=== PATIENT | female | born 1995 | race Caucasian/White ===

== ENCOUNTER 2016-07-13 03:11 | Emergency (ER) | payer BC ==
[2016-07-13] MEDS ORDERED: Phenergan 25 MG INJ IV ONE (03:26)
[2016-07-13] MEDS ORDERED: Sodium Chloride 0.9% 1000 ML 1,000 ML IV STA (03:26)
[2016-07-13] MEDS ORDERED: Sodium Chloride 0.9% 1000 ML 1,000 ML ONE (03:32)
[2016-07-13] MEDS ORDERED: Phenergan 25 MG INJ ONE (03:32)
--- NOTE | 2016-07-13 03:34 | ERPHSYRPT ---
- History of Present Illness Time Seen by Provider: 07/13/16 03:20 Source: patient Exam Limitations: no limitations Patient Subjective Stated Complaint: "i have been feeling sick since . i have not been hardly eating or drinking. i feel sick to my stomach when i lay down. i have felt light headed all day today. i have lost 20 lbs resently" Triage Nursing Assessment: aox3, breathign easy unlabored, skin pink warm dry, steady gait, moving all extremities Physician History: IN THE PAST 5 DAYS PT HAS HAD DECREASED APPETITE, NAUSEA, VOMITING X4 WITHOUT BLOOD, DIARRHEA X4 WITHOUT BLOOD, THIRST, DIZZINESS, LIGHTHEADEDNESS, WEIGHT LOSS OF 20# AND A FRONTAL HEADACHE. LAST BM WAS YESTERDAY AND DIARRHEAL. LMP IS NOW. Allergies/Adverse Reactions: albuterol Allergy (Mild, Verified 03/11/15 13:33) CHILDHOOD cefixime [From Suprax] Allergy (Mild, Verified 03/11/15 13:33) CHILDHOOD cefuroxime axetil [From Ceftin] Allergy (Mild, Verified 03/11/15 13:33) CHILDHOOD Hx Tetanus, Diphtheria Vaccination/Date Given: Yes Hx Influenza Vaccination/Date Given: Yes (2013) Hx Pneumococcal Vaccination/Date Given: No - Review of Systems Constitutional: Weight Loss, Other (THIRST), No Fever Respiratory: No Dyspnea Cardiac: No Chest Pain Abdominal/Gastrointestinal: Nausea, Vomiting, Diarrhea, Appetite Changes ( DECREASED), No Abdominal Pain Musculoskeletal: No Back Pain Skin: No Rash Neurological: Dizziness, Headache, Other (LIGHTHEADEDNESS) All Other Systems: Reviewed and Negative - Past Medical History Pertinent Past Medical History: Yes Psycho-Social History: Depression - Past Surgical History Past Surgical History: Yes Gastrointestinal: Other Other Surgical History: GASTRIC BYPASS, TONSILS - Social History Smoking Status: Never smoker Exposure to second hand smoke: No Drug Use: none Patient Lives Alone: No - Female History Hx Last Menstrual Period: 07/13/16 Hx Now: No - Nursing Vital Signs Nursing Vital Signs: Initial Vital Signs Temperature 97.7 F Temperature Source Oral Pulse Rate 64 Respiratory Rate 12 Blood Pressure [Right Arm] 125/74 Pain Intensity 0 - Physical Exam General Appearance: alert Eye Exam: PERRL/EOMI Ears, Nose, Throat Exam: TMs normal, pharynx normal, dry mucous membranes Neck Exam: normal inspection Respiratory Exam: lungs clear Cardiovascular Exam: normal heart sounds Gastrointestinal/Abdomen Exam: soft, normal bowel sounds Back Exam: normal range of motion Extremity Exam: normal inspection, No pedal edema Neurologic Exam: alert, cooperative Skin Exam: warm, dry SpO2 Interpretation: normal SpO2: 100 Oxygen Delivery: Room Air - Course Nursing assessment & vital signs reviewed: Yes Ordered Tests: Active Orders 24 hr Category Date Time Status IV Insertion STAT Care 07/13/16 03:26 Active AMYLASE Stat Lab 07/13/16 03:50 Completed CBC W DIFF Stat Lab 07/13/16 03:50 Completed CMP Stat Lab 07/13/16 03:50 Completed HCG QUALITATIVE,SERUM Stat Lab 07/13/16 03:50 Completed LIPASE Stat Lab 07/13/16 03:50 Completed MAG [MAGNESIUM] Stat Lab 07/13/16 03:50 Completed UA W/ MICROSCOPIC Stat Lab 07/13/16 03:50 Completed Urine Triage Profile Stat Lab 07/13/16 03:50 Completed Medication Summary Discontinued Medications Generic Name Dose Route Start Last Admin Trade Name Freq PRN Reason Stop Dose Admin Sodium Chloride 1,000 mls @ 999 mls/hr 07/13/16 03:26 07/13/16 03:33 Sodium Chloride 0.9% 1000 Ml IV 07/13/16 04:26 999 mls/hr .Q1H1M STA Administration Sodium Chloride Confirm 07/13/16 03:32 Sodium Chloride 0.9% 1000 Ml Administered 07/13/16 03:33 Dose 1,000 mls @ ud .ROUTE .STK-MED ONE Promethazine HCl 12.5 mg 07/13/16 03:26 07/13/16 03:33 Phenergan 25 Mg Inj IV 07/13/16 03:27 12.5 mg STAT ONE Administration Promethazine HCl Confirm 07/13/16 03:32 Phenergan 25 Mg Inj Administered 07/13/16 03:33 Dose 25 mg .ROUTE .STK-MED ONE Lab/Rad Data: Laboratory Result Diagrams 07/13/16 03:50 07/13/16 03:50 Laboratory Results 07/13/16 07/13/16 07/13/16 Range/Units 03:50 03:50 03:50 WBC (4.0-10.5) K/mm3 RBC (4.1-5.4) M/mm3 Hgb (12.0-16.0) gm/dl Hct (35-47) % MCV (78-100) fl MCH (26-32) pg MCHC (32-36) g/dl RDW (11.5-14.0) % Plt Count (150-450) K/mm3 MPV (6-9.5) fl Gran % (36.0-66.0) % Lymphocytes % (24.0-44.0) % Monocytes % (0.0-12.0) % Eosinophils % (0.00-5.0) % Basophils % (0.0-0.4) % Basophils # (0-0.4) Sodium (136-145) mEq/L Potassium (3.5-5.1) mEq/L Chloride (98-107) mEq/L Carbon Dioxide (21-32) mEq/L Anion Gap (5-15) MEQ/L BUN (9-20) mg/dL Creatinine (0.55-1.30) mg/dl Estimated GFR ML/MIN Glucose (70-110) MG/DL Calcium (8.5-10.1) mg/dL Magnesium 2.0 (1.8-2.4) mg/dL Total Bilirubin (0.2-1.0) mg/dL AST (15-37) U/L ALT (12-78) U/L Alkaline Phosphatase (46-116) U/L Serum Total Protein (6.4-8.2) gm/dL Albumin (3.4-5.0) g/dL Amylase (25-115) U/L Lipase (73-393) U/L Serum , Qual (Negative) Ur Collection Type CLEAN CATCH Urine Color KITTY (YELLOW) Urine Appearance SLIGHTLY CLOUDY (CLEAR) Urine pH 5.5 (5-6) Ur Specific [place] >=1.030 (1.005-1.025) Urine Protein 30 (Negative) Urine Glucose (UA) NEGATIVE (NEGATIVE) mg/dL Urine Ketones MODERATE-40 (NEGATIVE) Urine Nitrite NEGATIVE (NEGATIVE) Urine Bilirubin MODERATE (NEGATIVE) Urine Urobilinogen 1 (0-1) mg/dL Urine WBC (Auto) NEGATIVE (NEGATIVE) Urine RBC (Auto) NEGATIVE (0-5) Demarco/ul Urine Microscopic WBC 0-2 (0-5) /HPF Urine Bacteria FEW (NEGATIVE) /HPF Urine Mucus MANY (NEGATIVE) /HPF Urine Opiates Level NEG. (NEGATIVE) Ur Methadone NEG. (NEGATIVE) Urine Barbiturates NEG. (NEGATIVE) Ur Phencyclidine (PCP) NEG. (NEGATIVE) Urine Amphetamine NEG. (NEGATIVE) U Benzodiazepine Level NEG. (NEGATIVE) Urine Cocaine NEG. (NEGATIVE) Urine Marijuana (THC) NEG. (NEGATIVE) Specimen Received [id number] 07/13/16 07/13/16 07/13/16 Range/Units 03:50 03:50 03:50 WBC 7.6 (4.0-10.5) K/mm3 RBC 3.91 L (4.1-5.4) M/mm3 Hgb 11.0 L (12.0-16.0) gm/dl Hct 33.8 L (35-47) % MCV 86.4 (78-100) fl MCH 28.1 (26-32) pg MCHC 32.5 (32-36) g/dl RDW 13.9 (11.5-14.0) % Plt Count 305 (150-450) K/mm3 MPV 10.4 H (6-9.5) fl Gran % 59.8 (36.0-66.0) % Lymphocytes % 30.9 (24.0-44.0) % Monocytes % 8.1 (0.0-12.0) % Eosinophils % 0.9 (0.00-5.0) % Basophils % 0.3 (0.0-0.4) % Basophils # 0.02 (0-0.4) Sodium 138 (136-145) mEq/L Potassium 3.8 (3.5-5.1) mEq/L Chloride 103 (98-107) mEq/L Carbon Dioxide 24.8 (21-32) mEq/L Anion Gap 13.6 (5-15) MEQ/L BUN 11 (9-20) mg/dL Creatinine 0.80 (0.55-1.30) mg/dl Estimated GFR > 60 ML/MIN Glucose 85 (70-110) MG/DL Calcium 8.9 (8.5-10.1) mg/dL Magnesium (1.8-2.4) mg/dL Total Bilirubin 0.4 (0.2-1.0) mg/dL AST 26 (15-37) U/L ALT 36 (12-78) U/L Alkaline Phosphatase 63 (46-116) U/L Serum Total Protein 7.6 (6.4-8.2) gm/dL Albumin 4.0 (3.4-5.0) g/dL Amylase 42 (25-115) U/L Lipase 89 (73-393) U/L Serum , Qual NEGATIVE (Negative) Ur Collection Type Urine Color (YELLOW) Urine Appearance (CLEAR) Urine pH (5-6) Ur Specific [place] (1.005-1.025) Urine Protein (Negative) Urine Glucose (UA) (NEGATIVE) mg/dL Urine Ketones (NEGATIVE) Urine Nitrite (NEGATIVE) Urine Bilirubin (NEGATIVE) Urine Urobilinogen (0-1) mg/dL Urine WBC (Auto) (NEGATIVE) Urine RBC (Auto) (0-5) Demarco/ul Urine Microscopic WBC (0-5) /HPF Urine Bacteria (NEGATIVE) /HPF Urine Mucus (NEGATIVE) /HPF Urine Opiates Level (NEGATIVE) Ur Methadone (NEGATIVE) Urine Barbiturates (NEGATIVE) Ur Phencyclidine (PCP) (NEGATIVE) Urine Amphetamine (NEGATIVE) U Benzodiazepine Level (NEGATIVE) Urine Cocaine (NEGATIVE) Urine Marijuana (THC) (NEGATIVE) Specimen Received - Departure Time of Disposition: 04:58 Departure Disposition: Home Clinical Impression: VOMITING, DIARRHEA Condition: Fair Critical Care Time: No Instructions: Vomiting -- Adult, Diarrhea and Traveler's Diarrhea -- Adult Additional Instructions: FOLLOW UP WITH PRIVATE DOCTOR TOMORROW. Prescriptions: Promethazine HCl 25 mg [Phenergan 25 mg] 25 mg PO Q4H PRN PRN #14 tablet PRN Reason: Nausea/Vomiting
[2016-07-13 03:54] LABS: BASOPHIL % 0.3 % (0.0-0.4); Eosinophil % 0.9 % (0.00-5.0); Granulocytes % 59.8 % (36.0-66.0); Lymphocytes % 30.9 % (24.0-44.0); Mean Cell Volume 86.4 fl (78-100); Mean Corpuscular Hemoglobin 28.1 pg (26-32); Mean Platelet Volume 10.4 fl (6-9.5); Monocytes % 8.1 % (0.0-12.0); Platelet Count 305 K/mm3 (150-450); Red Blood Count 3.91 M/mm3 (4.1-5.4); Red Cell Distribution Width 13.9 % (11.5-14.0); White Blood Count 7.6 K/mm3 (4.0-10.5)
[2016-07-13 04:10] LABS: ALKALINE PHOSPHATASE 63 U/L (46-116); ANION GAP 13.6 MEQ/L (5-15); BILIRUBIN,TOTAL 0.4 mg/dL (0.2-1.0); BLOOD UREA NITROGEN 11 mg/dL (9-20); CHLORIDE 103 mEq/L (98-107); Carbon Dioxide 24.8 mEq/L (21-32); Glucose 85 MG/DL (70-110); LIPASE 89 U/L (73-393); Potassium 3.8 mEq/L (3.5-5.1); SGOT/AST 26 U/L (15-37); SGPT/ALT 36 U/L (12-78); SODIUM 138 mEq/L (136-145); Total Protein 7.6 gm/dL (6.4-8.2)
[2016-07-13 04:29] LABS: Collection Type CLEAN CATCH; Ph 5.5 (5-6)
[2016-07-13 04:30] LABS: Bacteria FEW /HPF (NEGATIVE); COMPLETE URINE MICROSCOPIC? YES; Mucus MANY /HPF (NEGATIVE); WBC 0-2 /HPF (0-5)
[2016-07-13 04:59] VITALS: O2SAT 100
[2016-07-13 05:11] VITALS: BP 144/65; PULSE 60
== END 2016-07-13 05:11 | disposition home or self-care (01) ==
LOC: ED 03:11
DX: R11.2 Nausea with vomiting, unspecified (principal); R19.7 Diarrhea, unspecified; Z98.84 Bariatric surgery status; R42 Dizziness and giddiness; R51 Headache; R10.9 Unspecified abdominal pain
CPT/HCPCS: 36000; 36415; 80053; 80307; 81000; 82150; 83690; 83735; 84703; 85025; 96360; 96374; 99283; 99284; J2550

== ENCOUNTER 2017-09-29 08:01 | Emergency (ER) | payer BC ==
[2017-09-29] MEDS ORDERED: TORAdol 30 mg Injection ONE (08:21)
--- NOTE | 2017-09-29 08:22 | ERPHSYRPT ---
- History of Present Illness Time Seen by Provider: 09/29/17 08:19 Source: patient Exam Limitations: no limitations Patient Subjective Stated Complaint: Lower back pain, denies injury. Denies hx of complaint Triage Nursing Assessment: Pt presents to the ED with complaints of lower back pain that began at approximately 2000 yesterday. Pt states she woke up with back soreness, progressively getting worse after onset. Denies known injury at this time. No distress noted, skin PWD. Physician History: mild to mod lower back pain ache for one day after lifting and bending, o/w no injury, ambulatory, no fever, no incont Allergies/Adverse Reactions: albuterol Allergy (Mild, Verified 03/11/15 13:33) CHILDHOOD cefixime [From Suprax] Allergy (Mild, Verified 03/11/15 13:33) CHILDHOOD cefuroxime axetil [From Ceftin] Allergy (Mild, Verified 03/11/15 13:33) CHILDHOOD Home Medications: Sertraline HCl [Sertraline HCl] 100 mg PO HS 09/29/17 [History] Trazodone HCl 50 mg [Desyrel 50 mg] 50 mg PO HS 09/29/17 [History] Hx Tetanus, Diphtheria Vaccination/Date Given: Yes Hx Influenza Vaccination/Date Given: No Hx Pneumococcal Vaccination/Date Given: No Immunizations Up to Date: Yes - Review of Systems Constitutional: No Fever Respiratory: No Dyspnea Abdominal/Gastrointestinal: No Abdominal Pain Genitourinary Symptoms: No Dysuria Musculoskeletal: Back Pain Skin: No Rash Neurological: No Dizziness - Past Medical History Pertinent Past Medical History: Yes Psycho-Social History: Depression - Past Surgical History Past Surgical History: Yes Gastrointestinal: Other Other Surgical History: GASTRIC BYPASS, TONSILS - Social History Smoking Status: Never smoker Exposure to second hand smoke: No Drug Use: none Patient Lives Alone: No - Female History Hx Last Menstrual Period: 09/16/2017 Hx Now: No - Nursing Vital Signs Nursing Vital Signs: Initial Vital Signs Temperature 98.5 F 09/29/17 08:06 Pulse Rate 78 09/29/17 08:06 Respiratory Rate 18 09/29/17 08:06 Blood Pressure 143/70 09/29/17 08:06 O2 Sat by Pulse Oximetry 95 09/29/17 08:06 Pain Scale Pain Intensity [Lower Back] 7 Pain Intensity 7 - Physical Exam General Appearance: no apparent distress Neck Exam: normal inspection Respiratory Exam: No respiratory distress Gastrointestinal Exam: No tenderness Back Exam: normal inspection, muscle spasm, other (nontender midline spine) Extremity Exam: normal range of motion Neurologic Exam: alert, oriented x 3, cooperative Skin Exam: normal color, warm, dry SpO2 Interpretation: normal SpO2: 95 Oxygen Delivery: Room Air - Course Nursing assessment & vital signs reviewed: Yes - Radiology Exams L-Spine X-ray Interpretation: Discussed w/ radiologist, Negative, No Fracture Ordered Tests: Active Orders 24 hr Category Date Time Status LUMBAR LIMITED (2 OR 3 VIEWS) Stat Exams 09/29/17 09:22 Completed HCG,QUALITATIVE URINE Stat Lab 09/29/17 09:08 Completed UA W/RFX UR CULTURE Stat Lab 09/29/17 09:08 Completed Medication Summary Discontinued Medications Generic Name Dose Route Start Last Admin Trade Name Freq PRN Reason Stop Dose Admin Ketorolac Tromethamine 60 mg 09/29/17 08:19 09/29/17 08:24 Toradol 30 Mg Injection IM 09/29/17 08:20 60 mg STAT ONE Administration Ketorolac Tromethamine Confirm 09/29/17 08:21 Toradol 30 Mg Injection Administered 09/29/17 08:22 Dose 60 mg .ROUTE .STK-MED ONE Lab/Rad Data: Laboratory Results 09/29/17 09/29/17 Range/Units 09:08 09:08 Ur Collection Type CLEAN CATCH Urine Color YELLOW (YELLOW) Urine Appearance CLEAR (CLEAR) Urine pH 6.0 (5-6) Ur Specific [place] 1.015 (1.005-1.025) Urine Protein NEGATIVE (Negative) Urine Ketones NEGATIVE (NEGATIVE) Urine Blood NEGATIVE (0-5) Demarco/ul Urine Nitrite NEGATIVE (NEGATIVE) Urine Bilirubin NEGATIVE (NEGATIVE) Urine Urobilinogen 4 (0-1) mg/dL Ur Leukocyte Esterase NEGATIVE (NEGATIVE) Urine Culture Reflexed NO (NO) Urine Glucose NEGATIVE (NEGATIVE) mg/dL Urine HCG, Qual NEGATIVE (Negative) Specimen Received 09/29/17 0908 - Progress Progress: improved Discussed with : Other Will see patient in: office Counseled pt/family regarding: lab results, diagnosis, need for follow-up, rad results - Departure Time of Disposition: 11:02 Departure Disposition: Home Clinical Impression: Low back strain Qualifiers: Encounter type: initial encounter Qualified Code(s): S39.012A - Strain of muscle, fascia and tendon of lower back, initial encounter Condition: Stable Critical Care Time: No Referrals: ARMAAN TREVINO NP [Primary Care Provider] - Instructions: Low Back Pain (DC) Additional Instructions: rest, ice, motrin, return if worse
[2017-09-29] MEDS: TORAdol 30 mg Injection IM ONE (08:24)
[2017-09-29 09:00] VITALS: BP 103/60; PULSE 60
--- NOTE | 2017-09-29 09:44 | XRAY ---
Indication: Low back pain. No known injury. Comparison: CT lumbar spine September 06, 2010. 3 views of the lumbar spine again demonstrates normal lumbar alignment with vertebral body heights/disc spaces maintained, multilevel tiny Schmorl nodes, and L4 limbus vertebrae. No new/acute findings. Incidental cholecystectomy clips and left upper quadrant suture material. 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
[2017-09-29 10:25] LABS: Appearance CLEAR (CLEAR); Bilirubin NEGATIVE (NEGATIVE); Blood NEGATIVE Ery/ul (0-5); Glucose NEGATIVE (NEGATIVE); Ketones NEGATIVE (NEGATIVE); Leukocyte Esterase NEGATIVE (NEGATIVE); Nitrite NEGATIVE (NEGATIVE); Protein,Urine Dip NEGATIVE (Negative); Specific Gravity 1.015 (1.005-1.025); Urobilinogen 4 mg/dL (0-1)
[2017-09-29 11:03] VITALS: O2SAT 95
== END 2017-09-29 11:19 | disposition home or self-care (01) ==
LOC: ED 08:01
DX: S39.012A Strain of muscle, fascia and tendon of lower back, initial encounter (principal); M54.5 Low back pain; Z79.899 Other long term (current) drug therapy
CPT/HCPCS: 72100; 81002; 84703; 96372; 99283; 99284; J1885

== ENCOUNTER 2017-10-16 21:34 | Emergency (ER) | payer BC ==
[2017-10-16] MEDS ORDERED: Zofran 4 MG/2 ML VIAL IV ONE (22:20)
[2017-10-16] MEDS ORDERED: BENADRYL 50 MG/ML IV ONE (22:20)
[2017-10-16] MEDS ORDERED: TORAdol 30 mg Injection IV ONE (22:20)
[2017-10-16] MEDS ORDERED: Sodium Chloride 0.9% 1000 ML 1,000 ML IV STA (22:21)
--- NOTE | 2017-10-16 22:27 | ERPHSYRPT ---
- History of Present Illness Time Seen by Provider: 10/16/17 21:48 Source: patient Exam Limitations: no limitations Patient Subjective Stated Complaint: states she just feels bad. states she is concerned she may be withdrawing from Trazadone. has been on since August due to HI. repeated vomiting today until she saw blood. Triage Nursing Assessment: alert and in no distress. staanna feeling funny since stopping trazadone 1 week ago.. did see her FMD on tue but staanna was not having these symptoms then. vomiting today multiple times.. starting foamy. now with blood. abdomen soft. denies diarrhea Physician History: Pt is c/o bifrontal headaches x 4 days. She has been treated for headaches, her doctor prescribed Trazodone, but she stopped about one week ago. She developed more severe headaches few days later, she tried to take one Trazodone tonight, but she was unable to keep it. She has been vomiting since 4 PM this afternoon. She denies fever, visual changes, other complaints. Timing/Duration: day(s) (4) Quality: sharpness, throbbing Head Pain Location: frontal Severity of Pain-Max: severe Severity of Pain-Current: severe Recent Head Trauma: frequent headaches Associated Symptoms: nausea/vomiting Previous symptoms: same symptoms as today Allergies/Adverse Reactions: albuterol Allergy (Mild, Verified 03/11/15 13:33) CHILDHOOD cefixime [From Suprax] Allergy (Mild, Verified 03/11/15 13:33) CHILDHOOD cefuroxime axetil [From Ceftin] Allergy (Mild, Verified 03/11/15 13:33) CHILDHOOD Home Medications: Sertraline HCl [Sertraline HCl] 100 mg PO HS 09/29/17 [History] Trazodone HCl 50 mg [Desyrel 50 mg] 50 mg PO HS 09/29/17 [History] Hx Tetanus, Diphtheria Vaccination/Date Given: Yes Hx Influenza Vaccination/Date Given: No Hx Pneumococcal Vaccination/Date Given: No - Review of Systems Constitutional: No Symptoms Abdominal/Gastrointestinal: Nausea, Vomiting Neurological: Headache All Other Systems: Reviewed and Negative - Past Medical History Pertinent Past Medical History: Yes Neurological History: Other Psycho-Social History: Depression Other Medical History: had HI in august - Past Surgical History Past Surgical History: Yes Gastrointestinal: Other Other Surgical History: GASTRIC BYPASS, TONSILS - Social History Smoking Status: Never smoker Exposure to second hand smoke: Yes Drug Use: none Patient Lives Alone: No - Female History Hx Last Menstrual Period: now Hx Now: No - Nursing Vital Signs Nursing Vital Signs: Initial Vital Signs Temperature 97.8 F 10/16/17 21:50 Pulse Rate 70 10/16/17 21:50 Respiratory Rate 20 10/16/17 21:50 Blood Pressure 116/64 10/16/17 21:50 O2 Sat by Pulse Oximetry 98 10/16/17 21:50 Pain Scale Pain Intensity 3 - Physical Exam General Appearance: no apparent distress Eye Exam: PERRL/EOMI, eyes nml inspection Ears, Nose, Throat Exam: normal ENT inspection, pharynx normal, moist mucous membranes Neck Exam: normal inspection, non-tender, supple, full range of motion, No JVD Respiratory Exam: normal breath sounds, lungs clear, airway intact, No chest tenderness Cardiovascular Exam: regular rate/rhythm, normal heart sounds, normal peripheral pulses, No murmur Gastrointestinal/Abdominal Exam: soft, normal bowel sounds, No tenderness Back Exam: normal inspection, No CVA tenderness Extremity Exam: normal inspection Mental Status Exam: alert, oriented x 3, cooperative order to delivery supervisor Exam: normal speech, PERRL Coordination/Gait Exam: normal gait Motor/Sensory Exam: no motor deficit Skin Exam: normal color, warm, dry, No rash Lymphatic Exam: No adenopathy SpO2 Interpretation: normal SpO2: 98 Oxygen Delivery: Room Air - Course Nursing assessment & vital signs reviewed: Yes - CT Exams Head CT Interpretation: Negative, Tele-radiologist Report Ordered Tests: Active Orders 24 hr Category Date Time Status IV Insertion STAT Care 10/16/17 21:56 Active HEAD WITHOUT CONTRAST [CT] Stat Exams 10/16/17 22:14 Taken CBC W DIFF Stat Lab 10/16/17 21:50 Completed CMP Stat Lab 10/16/17 21:50 Completed CULTURE,URINE Stat Lab 10/16/17 21:50 Received Erythrocyte Sedimentation Rate Stat Lab 10/16/17 21:50 Completed HCG,QUALITATIVE URINE Stat Lab 10/16/17 21:50 Completed PROTIME WITH INR Stat Lab 10/16/17 21:50 Completed UA W/ MICROSCOPIC Stat Lab 10/16/17 21:50 Completed Urine Triage Profile Stat Lab 10/16/17 21:50 Completed Medication Summary Discontinued Medications Generic Name Dose Route Start Last Admin Trade Name Joshua PRN Reason Stop Dose Admin Diphenhydramine HCl 25 mg 10/16/17 22:20 10/16/17 22:36 Benadryl 50 Mg/Ml IV 10/16/17 22:21 25 mg STAT ONE Administration Diphenhydramine HCl Confirm 10/16/17 22:28 Benadryl 50 Mg/Ml Administered 10/16/17 22:29 Dose 50 mg .ROUTE .STK-MED ONE Diphenhydramine HCl 25 mg 10/17/17 01:05 Benadryl 50 Mg/Ml IV 10/17/17 01:06 STAT ONE Sodium Chloride 1,000 mls @ 999 mls/hr 10/16/17 22:21 10/16/17 23:51 Sodium Chloride 0.9% 1000 Ml IV 10/16/17 23:21 Infused .Q1H1M STA Infusion Sodium Chloride Confirm 10/16/17 22:29 Sodium Chloride 0.9% 1000 Ml Administered 10/16/17 22:30 Dose 1,000 mls @ ud .ROUTE .STK-MED ONE Ketorolac Tromethamine 30 mg 10/16/17 22:20 10/16/17 22:36 Toradol 30 Mg Injection IV 10/16/17 22:21 30 mg STAT ONE Administration Ketorolac Tromethamine Confirm 10/16/17 22:28 Toradol 30 Mg Injection Administered 10/16/17 22:29 Dose 30 mg .ROUTE .STK-MED ONE Ondansetron HCl 4 mg 10/16/17 22:20 10/16/17 22:36 Zofran 4 Mg/2 Ml Vial IV 10/16/17 22:21 4 mg STAT ONE Administration Ondansetron HCl Confirm 10/16/17 22:28 Zofran 4 Mg/2 Ml Vial Administered 10/16/17 22:29 Dose 4 mg .ROUTE .STK-MED ONE Lab/Rad Data: Laboratory Result Diagrams 10/16/17 21:50 10/16/17 21:50 Laboratory Results 10/16/17 10/16/17 10/16/17 Range/Units 21:50 21:50 21:50 WBC (4.0-10.5) K/mm3 RBC (4.1-5.4) M/mm3 Hgb (12.0-16.0) gm/dl Hct (35-47) % MCV (78-100) fl MCH (26-32) pg MCHC (32-36) g/dl RDW (11.5-14.0) % Plt Count (150-450) K/mm3 MPV (6-9.5) fl Gran % (36.0-66.0) % Eos # (Auto) (0-0.5) Absolute Lymphs (auto) (1.0-4.6) Absolute Monos (auto) (0.0-1.3) Lymphocytes % (24.0-44.0) % Monocytes % (0.0-12.0) % Eosinophils % (0.00-5.0) % Basophils % (0.0-0.4) % Absolute Granulocytes (1.4-6.9) Basophils # (0-0.4) ESR (0-20) mm/hr PT (9.95-12.35) SECONDS INR (0.8-3.0) Sodium (137-145) mmol/L Potassium (3.5-5.1) mmol/L Chloride (98-107) mmol/L Carbon Dioxide (22-30) mmol/L Anion Gap (5-15) MEQ/L BUN (7-17) mg/dL Creatinine (0.52-1.04) mg/dL Estimated GFR ML/MIN Glucose (74-106) mg/dL Calcium (8.4-10.2) mg/dL Total Bilirubin (0.2-1.3) mg/dL AST (14-36) U/L ALT (0-35) U/L Alkaline Phosphatase (38-126) U/L Serum Total Protein (6.3-8.2) g/dL Albumin (3.5-5.0) g/dL Ur Collection Type VOID Urine Color LIGHT RED (YELLOW) Urine Appearance HAZY (CLEAR) Urine pH 7.0 (5-6) Ur Specific [place] 1.010 (1.005-1.025) Urine Protein NEGATIVE (Negative) Urine Ketones NEGATIVE (NEGATIVE) Urine Blood 250 (0-5) Demarco/ul Urine Nitrite NEGATIVE (NEGATIVE) Urine Bilirubin NEGATIVE (NEGATIVE) Urine Urobilinogen NORMAL (0-1) mg/dL Ur Leukocyte Esterase 1+ (NEGATIVE) Urine Microscopic RBC 25-50 (0-2) /HPF Urine Microscopic WBC 0-2 (0-5) /HPF Ur Epithelial Cells MODERATE (FEW) /HPF Urine Bacteria FEW (NEGATIVE) /HPF Urine Culture Reflexed YES (NO) Urine Glucose NEGATIVE (NEGATIVE) mg/dL Urine HCG, Qual NEGATIVE (Negative) Urine Opiates Level NEGATIVE (NEGATIVE) Ur Methadone NEGATIVE (NEGATIVE) Urine Barbiturates NEGATIVE (NEGATIVE) Ur Phencyclidine (PCP) NEGATIVE (NEGATIVE) Urine Amphetamine NEGATIVE (NEGATIVE) U Benzodiazepine Level NEGATIVE (NEGATIVE) Urine Cocaine NEGATIVE (NEGATIVE) Urine Marijuana (THC) NEGATIVE (NEGATIVE) Specimen Received 10/16/17 2250 10/16/17 10/16/17 10/16/17 Range/Units 21:50 21:50 21:50 WBC 7.9 (4.0-10.5) K/mm3 RBC 4.19 (4.1-5.4) M/mm3 Hgb 10.3 L (12.0-16.0) gm/dl Hct 32.5 L (35-47) % MCV 77.6 L (78-100) fl MCH 24.5 L (26-32) pg MCHC 31.7 L (32-36) g/dl RDW 15.5 H (11.5-14.0) % Plt Count 399 (150-450) K/mm3 MPV 10.8 H (6-9.5) fl Gran % 54.4 (36.0-66.0) % Eos # (Auto) 0.10 (0-0.5) Absolute Lymphs (auto) 2.74 (1.0-4.6) Absolute Monos (auto) 0.73 (0.0-1.3) Lymphocytes % 34.9 (24.0-44.0) % Monocytes % 9.3 (0.0-12.0) % Eosinophils % 1.3 (0.00-5.0) % Basophils % 0.1 (0.0-0.4) % Absolute Granulocytes 4.28 (1.4-6.9) Basophils # 0.01 (0-0.4) ESR 44 H (0-20) mm/hr PT 11.8 (9.95-12.35) SECONDS INR 1.01 (0.8-3.0) Sodium 143 (137-145) mmol/L Potassium 3.5 (3.5-5.1) mmol/L Chloride 106 (98-107) mmol/L Carbon Dioxide 24 (22-30) mmol/L Anion Gap 16.9 H (5-15) MEQ/L BUN 10 (7-17) mg/dL Creatinine 0.48 L (0.52-1.04) mg/dL Estimated GFR > 60.0 ML/MIN Glucose 76 (74-106) mg/dL Calcium 8.9 (8.4-10.2) mg/dL Total Bilirubin < 0.10 L (0.2-1.3) mg/dL AST 23 (14-36) U/L ALT 29 (0-35) U/L Alkaline Phosphatase 84 (38-126) U/L Serum Total Protein 7.4 (6.3-8.2) g/dL Albumin 4.1 (3.5-5.0) g/dL Ur Collection Type Urine Color (YELLOW) Urine Appearance (CLEAR) Urine pH (5-6) Ur Specific [place] (1.005-1.025) Urine Protein (Negative) Urine Ketones (NEGATIVE) Urine Blood (0-5) Demarco/ul Urine Nitrite (NEGATIVE) Urine Bilirubin (NEGATIVE) Urine Urobilinogen (0-1) mg/dL Ur Leukocyte Esterase (NEGATIVE) Urine Microscopic RBC (0-2) /HPF Urine Microscopic WBC (0-5) /HPF Ur Epithelial Cells (FEW) /HPF Urine Bacteria (NEGATIVE) /HPF Urine Culture Reflexed (NO) Urine Glucose (NEGATIVE) mg/dL Urine HCG, Qual (Negative) Urine Opiates Level (NEGATIVE) Ur Methadone (NEGATIVE) Urine Barbiturates (NEGATIVE) Ur Phencyclidine (PCP) (NEGATIVE) Urine Amphetamine (NEGATIVE) U Benzodiazepine Level (NEGATIVE) Urine Cocaine (NEGATIVE) Urine Marijuana (THC) (NEGATIVE) Specimen Received - Progress Progress: improved Air Movement: good Progress Note: 10/17/17 01:08 Improved after iv fluids, Zofran and Benadryl, Toradol iv., did not vomit, afebrile, alert and active, not lethargic, stable. I informed her about her results, will discharge her in good condition, suggested to restart Trazodone as directed, and follow up with her Neurologist. Return if severe headaches, vomiting, or fever> 102 F, lethargy . Antibiotics given: No Counseled pt/family regarding: lab results, diagnosis, need for follow-up, rad results - Departure Time of Disposition: :09 Departure Disposition: Home Clinical Impression: Headache Qualifiers: Headache type: unspecified Headache chronicity pattern: chronic headache Intractability: not intractable Qualified Code(s): R51 - Headache Condition: Stable Critical Care Time: No Referrals: ARMAAN TREVINO NP [Primary Care Provider] - Instructions: Vomiting -- Adult, Tension Headache Additional Instructions: Rest x 2-3 days, drink plenty of fluids, return if severe headaches, vomiting, lethargy or fever> 102 F! Follow up with your Neurologist next week, and restart Trazodone as directed! Prescriptions: Ondansetron ODT 4 MG [Zofran Odt 4 mg] 4 mg PO Q6H PRN PRN #10 tab.rapdis PRN Reason: Nausea/Vomiting
[2017-10-16] MEDS ORDERED: Zofran 4 MG/2 ML VIAL ONE (22:28)
[2017-10-16] MEDS ORDERED: BENADRYL 50 MG/ML ONE (22:28)
[2017-10-16] MEDS ORDERED: TORAdol 30 mg Injection ONE (22:28)
[2017-10-16] MEDS ORDERED: Sodium Chloride 0.9% 1000 ML 1,000 ML ONE (22:29)
[2017-10-16 22:49] LABS: BASOPHIL % 0.1 % (0.0-0.4); Basophil (Absolute #) 0.01 (0-0.4); Eosinophil % 1.3 % (0.00-5.0); Granulocyte Absolute (ANC) 4.28 (1.4-6.9); Granulocytes % 54.4 % (36.0-66.0); Hematocrit 32.5 % (35-47); Hemoglobin 10.3 gm/dl (12.0-16.0); Lymphocyte (Absolute #) 2.74 (1.0-4.6); Lymphocytes % 34.9 % (24.0-44.0); Mean Cell Volume 77.6 fl (78-100); Mean Corpuscular Hgb Concent. 31.7 g/dl (32-36); Mean Platelet Volume 10.8 fl (6-9.5); Monocyte (Absolute #) 0.73 (0.0-1.3); Monocytes % 9.3 % (0.0-12.0); Platelet Count 399 K/mm3 (150-450); Red Blood Count 4.19 M/mm3 (4.1-5.4); Red Cell Distribution Width 15.5 % (11.5-14.0); White Blood Count 7.9 K/mm3 (4.0-10.5)
[2017-10-16 22:53] LABS: Mean Corpuscular Hemoglobin 24.5 pg (26-32)
[2017-10-16 23:08] LABS: ALBUMIN 4.1 g/dL (3.5-5.0); ALKALINE PHOSPHATASE 84 U/L (38-126); ANION GAP 16.9 MEQ/L (5-15); BILIRUBIN,TOTAL < 0.10 mg/dL (0.2-1.3); BLOOD UREA NITROGEN 10 mg/dL (7-17); CHLORIDE 106 mmol/L (98-107); Calcium 8.9 mg/dL (8.4-10.2); Carbon Dioxide 24 mmol/L (22-30); Creatinine 1 0.48 mg/dL (0.52-1.04); Glucose 76 mg/dL (74-106); Potassium 3.5 mmol/L (3.5-5.1); SGOT/AST 23 U/L (14-36); SGPT/ALT 29 U/L (0-35); SODIUM 143 mmol/L (137-145); Total Protein 7.4 g/dL (6.3-8.2)
[2017-10-16 23:16] LABS: Amphetamine,Urine NEGATIVE (NEGATIVE); Barbiturate,Urine NEGATIVE (NEGATIVE); Benzodiazepine,Urine NEGATIVE (NEGATIVE); Cocaine,Urine NEGATIVE (NEGATIVE); Methadone,Urine NEGATIVE (NEGATIVE); Opiate,Urine NEGATIVE (NEGATIVE); PCP,Urine NEGATIVE (NEGATIVE); THC,Urine NEGATIVE (NEGATIVE)
[2017-10-16 23:42] LABS: Appearance HAZY (CLEAR); Bilirubin NEGATIVE (NEGATIVE); Blood 250 Ery/ul (0-5); Glucose NEGATIVE (NEGATIVE); Ketones NEGATIVE (NEGATIVE); Leukocyte Esterase 1+ (NEGATIVE); Nitrite NEGATIVE (NEGATIVE); Protein,Urine Dip NEGATIVE (Negative); Urobilinogen NORMAL mg/dL (0-1)
[2017-10-16 23:43] LABS: Bacteria FEW /HPF (NEGATIVE); Epithelial Cells MODERATE /HPF (FEW); RBC 25-50 /HPF (0-2); WBC 0-2 /HPF (0-5)
[2017-10-16 23:45] LABS: Erythrocyte Sedimentation Rate 44 mm/hr (0-20)
[2017-10-16 23:51] LABS: INR 1.01 (0.8-3.0)
[2017-10-17] MEDS ORDERED: BENADRYL 50 MG/ML IV ONE (01:05)
[2017-10-17 01:14] VITALS: O2SAT 98
[2017-10-17] MEDS ORDERED: BENADRYL 50 MG/ML ONE (01:20)
[2017-10-17] MEDS ORDERED: Pepcid 20 MG VIAL IV ONE (01:20)
[2017-10-17 01:39] VITALS: BP 116/58; PULSE 53
--- NOTE | 2017-10-17 08:41 | XRAY ---
Indication: Headache and dizziness. History of migraines. Multiple contiguous axial images obtained through the head without contrast. Comparison: September 18, 2013. Minimal beam artifact from patient's earrings which patient states could not be removed. Again grossly normal appearing brain parenchyma, ventricles, and bony calvarium. Visualized paranasal sinuses and mastoid air cells are clear. Impression: Stable normal CT head without contrast exam. Comment: Preliminary interpretation was made by [facility]. No discrepancy. CT DI 70.77
[2017-10-17] MEDS ORDERED: Pepcid 20 MG VIAL IV SCH (10:00)
== END 2017-10-17 01:39 | disposition home or self-care (01) ==
LOC: ED 21:34
DX: R51 Headache (principal); R11.2 Nausea with vomiting, unspecified
CPT/HCPCS: 36000; 36415; 70450; 80053; 80307; 81000; 84703; 85025; 85610; 85652; 87086; 96360; 96374; 96375; 96376; 99284; J1200; J1885; J2405

== ENCOUNTER 2018-09-13 15:28 | Emergency (ER) | payer BC ==
--- NOTE | 2018-09-13 16:19 | ERPHSYRPT ---
- History of Present Illness Time Seen by Provider: 09/13/18 15:45 Source: patient Exam Limitations: no limitations Patient Subjective Stated Complaint: Pt states "I had selective reduction done yesterday due to an underdeveloped fetus. They said I would have cramping and some spotting but today I have had some discharge that was red tinged and I am leaking. I don't think I am peeing, but every now and then it is wet. I just want to check on baby A" Triage Nursing Assessment: Pt alert and oriented X 3, skin pwd Pt ambulates with an upright steady gait, able to speak in clear full sentences. Pt in no apparent respiratory distress. Physician History: patient 15 weeks with twins; ; one twin not developing and was seen at [facility] for a reductions yesterday- non-viable infant injected there yesterday- now with abdominal cramping and possible leaking- called [facility] and directed here to evaluate viable twin- no fever; no N&V; ? vaginal d/c Timing/Duration: today (cramps and possible vag d/c leaking), yesterday ( reduction procedure) Severity: mild Modifying Factors: Improves With: other (procedure yesterday) Associated Symptoms: abdominal pain, No shortness of breath, No fever, No headaches, No rash, No syncope, No seizure Allergies/Adverse Reactions: albuterol Allergy (Mild, Verified 03/11/15 13:33) CHILDHOOD cefixime [From Suprax] Allergy (Mild, Verified 03/11/15 13:33) CHILDHOOD cefuroxime axetil [From Ceftin] Allergy (Mild, Verified 03/11/15 13:33) CHILDHOOD Home Medications: Sertraline HCl 100 mg PO HS 09/29/17 [History] Doxylamine Succinate/Vit B6 [Bonjesta ER 20-20 mg Tablet] 1 tab PO DAILY [History] Vits W-Ca,Fe,FA(<1Mg) [] 1 each PO DAILY 09/13/18 [History] Hx Tetanus, Diphtheria Vaccination/Date Given: Yes Hx Influenza Vaccination/Date Given: No Hx Pneumococcal Vaccination/Date Given: No Immunizations Up to Date: Yes - Review of Systems Constitutional: No Symptoms Eyes: No Symptoms Ears, Nose, & Throat: No Symptoms Respiratory: No Cough, No Dyspnea, No Wheezing Cardiac: No Chest Pain, No Palpitations, No Syncope Abdominal/Gastrointestinal: Abdominal Pain, No Nausea, No Vomiting, No Diarrhea Genitourinary Symptoms: , Vaginal Discharge (posssible), No Dysuria, No Frequency, No Hematuria, No Vaginal Bleeding Musculoskeletal: No Symptoms Skin: No Symptoms Neurological: No Symptoms Psychological: No Symptoms Endocrine: No Symptoms Hematologic/Lymphatic: No Symptoms - Past Medical History Pertinent Past Medical History: Yes Neurological History: Other Psycho-Social History: Depression Other Medical History: had HI in august - Past Surgical History Past Surgical History: Yes Gastrointestinal: Other Other Surgical History: GASTRIC BYPASS, TONSILS - Social History Smoking Status: Never smoker Exposure to second hand smoke: Yes Alcohol Use: None Drug Use: none Patient Lives Alone: No - Female History Hx Last Menstrual Period: 05/18/2018 Hx Now: Yes Expected Date of Delivery: 01/01/19 Gestational Age: 15 weeks 4 - Nursing Vital Signs Nursing Vital Signs: Initial Vital Signs Temperature 98.8 F 09/13/18 15:47 Pulse Rate 92 H 09/13/18 15:47 Respiratory Rate 18 09/13/18 15:47 Blood Pressure 149/59 09/13/18 15:47 O2 Sat by Pulse Oximetry 98 09/13/18 15:47 Pain Scale Pain Intensity 8 - Physical Exam General Appearance: mild distress, alert Eye Exam: PERRL/EOMI, eyes nml inspection, No photophobia Ears, Nose, Throat Exam: normal ENT inspection, TMs normal, pharynx normal, moist mucous membranes Neck Exam: normal inspection, non-tender, supple, full range of motion, No meningismus Respiratory Exam: normal breath sounds, lungs clear, airway intact, No chest tenderness, No respiratory distress, No crackles/rales, No rhonchi, No wheezing Cardiovascular Exam: regular rate/rhythm, normal heart sounds, normal peripheral pulses, capillary refill <2 sec, No murmur, No edema Gastrointestinal/Abdomen Exam: soft, normal bowel sounds, tenderness (mild low midline; Bandaids x 2 mid lower abdomen- no bleeding or frainage), organomegaly (only uterus enlarged), No guarding, No pulsatile mass, No rebound Rectal Exam: deferred Back Exam: normal inspection, normal range of motion, No CVA tenderness, No vertebral tenderness, No rash Extremity Exam: normal inspection, normal range of motion, No pelvis stable, No kwadwo's sign, No pedal edema Neurologic Exam: alert, oriented x 3, cooperative, lead nurse II-XII nml as tested, normal mood/affect, nml cerebellar function, nml station & gait Skin Exam: normal color, warm, dry, No rash, No petechiae SpO2 Interpretation: normal SpO2: 98 O2 Delivery: Room Air - Course Nursing assessment & vital signs reviewed: Yes - Radiology Ultrasound Exam OB Ultrasound: tele radiology report, Other (viable twin with good FHT and good fluid sac; nonviable sac min fluid and no FHT) Ordered Tests: Active Orders 24 hr Category Date Time Status OB >14 WKS 1st GESTATION [US] Routine Exams 09/13/18 16:12 Taken OB >14 WKS ADDL GESTATION [US] Routine Exams 09/13/18 16:12 Taken - Progress Progress: improved, re-examined Progress Note: 09/13/18 16:19 will have US examine and evaluate for status of viable fetus; patient informed 09/13/18 17:28 reviewed findingswt patient and family- rest;no sex or work tomorrow; follow up OB Counseled pt/family regarding: diagnosis, need for follow-up, rad results - Departure Departure Disposition: Home Clinical Impression: Ob check twins, Condition: Stable Critical Care Time: No Referrals: JOSH MEZA MD [Primary Care Provider] - Instructions: Symptoms Additional Instructions: rest; no owrk 24-48 hours; no sex; call OB for follwo up;may take home meds Follow-up with family doctor as directed. Call for appointment. Return if any problems. If you smoke please stop. Call or follow up with your family doctor for assistance if you need it to stop. Please wear your seatbelt when driving. Have a nice day. Thank you for allowing us to participate in your care today. :o) Dr Cristian Magana
[2018-09-13] MEDS ORDERED: MORPHINE SULFATE 10 MG/ML IV ONE (18:06)
[2018-09-13] MEDS ORDERED: Zofran 4 MG/2 ML VIAL IV ONE (18:06)
[2018-09-13] MEDS ORDERED: MORPHINE SULFATE 2 MG INJ ONE ×2 (18:08→20:42)
[2018-09-13] MEDS ORDERED: Sodium Chloride 0.9% 1000 ML 1,000 ML ONE (18:08)
[2018-09-13] MEDS ORDERED: MORPHINE SULFATE 10 MG/ML ONE (18:15)
[2018-09-13] MEDS ORDERED: Sodium Chloride 0.9% 1000 ML 1,000 ML IV SCH (18:15)
[2018-09-13] MEDS ORDERED: Zofran 4 MG/2 ML VIAL ONE (18:22)
[2018-09-13] MEDS ORDERED: MORPHINE SULFATE 4 MG INJ IM ONE (18:42)
[2018-09-13] MEDS ORDERED: MORPHINE SULFATE 4 MG INJ IV ONE ×2 (18:46→20:15)
[2018-09-13] MEDS ORDERED: MORPHINE SULFATE 4 MG INJ ONE (18:47)
[2018-09-13 20:56] VITALS: BP 100/56; PULSE 86; O2SAT 99
--- NOTE | 2018-09-14 10:49 | XRAY ---
Indication: Pelvic cramping and vaginal leaking. Known twin with recent selective reduction of twin B due to developmental abnormalities. Two-dimensional OB ultrasound of twin A performed. Comparison: None Twin A demonstrates viable intrauterine with normal four-chamber heart and heart rate 163 bpm. Visualized stomach, bladder, and cord insertion unremarkable. Predominantly posterior placenta without abnormal retroplacental fluid. BPD measures 3.49 cm corresponding to 16 weeks 5 days. HC measures 12.28 cm corresponding to 16 weeks 1 day. AC measures 9.89 cm corresponding to 16 weeks 0 days. FL measures 1.97 cm corresponding to 15 weeks 6 days. ANNIA is 11.0 cm. Impression: Twin A viable with mean gestational age 16 weeks 1 day. Expected date of confinement is February 27, 2019. No acute findings. Comment: Preliminary report was given.
--- NOTE | 2018-09-14 10:50 | XRAY ---
Indication: Pelvic cramping and vaginal leaking. Known twin with recent selective reduction of twin B due to developmental abnormalities. Two-dimensional OB ultrasound of twin B performed. Comparison: None Twin B demonstrates no heart rate consistent with demise. Lower torso also absent, known abnormality. Predominantly posterior placenta without abnormal retroplacental fluid. BPD measures 2.82 cm corresponding to 15 weeks 0 day. HC measures 11.16 cm corresponding to 15 weeks 3 days. AC measures 8.97 cm corresponding to 15 weeks 1 day. FL measures 1.65 cm corresponding to 14 weeks 6 days. ANNIA is 5.2 cm. Impression: Twin B mean gestation age is 15 weeks 1 day. No heart tones favoring demise presumed related to known reported selective reduction. Comment: Preliminary report was given.
--- NOTE | 2018-09-14 10:54 | XRAY ---
Indication: Tissue in os. Evaluate viable . Limited OB ultrasound of twin A performed and compared to exam earlier in the day. Again twin A demonstrates heart rate 167 bpm. ANNIA has dramatically diminished in the interim with only single pocket identified measuring 0.5 cm. ANNIA was previously 11 cm. Comment: Preliminary report was given.
== END 2018-09-13 21:07 | disposition short-term general hospital (02) ==
LOC: ED 15:28
DX: Z34.92 Encounter for supervision of normal pregnancy, unspecified, second trimester (principal); Z98.890 Other specified postprocedural states
CPT/HCPCS: 36000; 76805; 76810; 76815; 96360; 96374; 96375; 96376; 99285; J2270; J2405

== ENCOUNTER 2019-03-26 16:54 | Emergency (ER) | payer BC ==
--- NOTE | 2019-03-26 17:21 | ERPHSYRPT ---
- History of Present Illness Time Seen by Provider: 03/26/19 17:15 Source: patient Exam Limitations: no limitations Physician History: Patient is a at 6.5 weeks who comes into the emergency department with lower abdominal/pelvic cramping and bleeding for the past hour. Patient see Dr Meza in [place], [place], who performed an ultrasound in the am of 03/26/2019 and there was a subchorionic hemorrhage seen. Patient described her symptoms with Dr Meza, who recommended she come into the emergency department to get evaluated. Patient states she is A positive blood type. Timing/Duration: today, hour(s) (1) Activites at Onset: none Quality: cramping Onset Location: suprapubic, pelvic pain Pain Radiation: vaginal Severity of Pain-Max: moderate Severity of Pain-Current: mild Prior abdominal problems: none Sexual intercourse history: less than 2 months ago, single partner Modifying Factors: Improves With: nothing Associated Symptoms: , other (positive vaginal bleeding), No abdominal pain, No fever, No chills, No diaphoresis, No nausea, No vomiting, No dysuria, No nocturia, No polyuria, No urinary frequency, No loss of bladder control, No lower back pain, No lumps, No mass, No swelling, No syncope, No vaginal discharge, No vaginal fluid leakage Allergies/Adverse Reactions: albuterol Allergy (Mild, Verified 03/26/19 17:21) CHILDHOOD cefixime [From Suprax] Allergy (Mild, Verified 03/26/19 17:21) CHILDHOOD cefuroxime axetil [From Ceftin] Allergy (Mild, Verified 03/26/19 17:21) CHILDHOOD Home Medications: Sertraline HCl 100 mg PO HS 09/29/17 [History] Doxylamine Succinate/Vit B6 [Bonjesta ER 20-20 mg Tablet] 1 tab PO DAILY [History] Vits W-Ca,Fe,FA(<1Mg) [] 1 each PO DAILY 09/13/18 [History] Hx Tetanus, Diphtheria Vaccination/Date Given: Yes Hx Influenza Vaccination/Date Given: No Hx Pneumococcal Vaccination/Date Given: No - Review of Systems Constitutional: No Fever, No Fatigue, No Lethargy Eyes: No Eye Pain, No Vision Changes Ears, Nose, & Throat: No Throat Pain, No Throat Swelling, No Painful Swallowing Respiratory: No Cough, No Dyspnea Cardiac: No Chest Pain, No Palpitations Abdominal/Gastrointestinal: No Nausea, No Vomiting, No Hematemesis, No Hematochezia, No Melena Genitourinary Symptoms: Vaginal Bleeding, No Dysuria, No Frequency, No Hematuria , No Flank Pain Musculoskeletal: No Back Pain, No Neck Pain Skin: No Pruritis, No Rash Neurological: No Focal Weakness, No Seizure, No Tremors Endocrine: No Polydipsia, No Excessive Sweating Hematologic/Lymphatic: No Easy Bleeding, No Easy Bruising All Other Systems: Reviewed and Negative - Past Medical History Pertinent Past Medical History: Yes Neurological History: Other Psycho-Social History: Depression Other Medical History: had HI in august - Past Surgical History Past Surgical History: Yes Gastrointestinal: Other Other Surgical History: GASTRIC BYPASS, TONSILS - Social History Smoking Status: Never smoker Exposure to second hand smoke: Yes Alcohol Use: None Drug Use: none Patient Lives Alone: No - Nursing Vital Signs Nursing Vital Signs: Initial Vital Signs Temperature 98.8 F 03/26/19 17:01 Pulse Rate 80 03/26/19 17:01 Respiratory Rate 20 03/26/19 17:01 Blood Pressure 114/59 03/26/19 17:01 O2 Sat by Pulse Oximetry 98 03/26/19 17:01 Pain Scale Pain Intensity 7 - Physical Exam General Appearance: no apparent distress, alert Eye Exam: PERRL/EOMI, eyes nml inspection, No scleral icterus Ears, Nose, Throat Exam: pharynx normal, moist mucous membranes Neck Exam: normal inspection, non-tender, supple, full range of motion, No meningismus Respiratory Exam: normal breath sounds, lungs clear, airway intact, No chest tenderness, No respiratory distress, No crackles/rales, No rhonchi, No wheezing , No stridor, No pleural rub Cardiovascular Exam: regular rate/rhythm, normal heart sounds, normal peripheral pulses, capillary refill <2 sec Gastrointestinal/Abdomen Exam: soft, normal bowel sounds, No tenderness, No distention, No mass, No guarding, No rebound Pelvic Exam: vaginal bleeding Back Exam: No CVA tenderness, No vertebral tenderness, No rash Extremity Exam: normal inspection, normal range of motion, pelvis stable, No swelling Neurologic Exam: alert, oriented x 3, cooperative, patient access manager II-XII nml as tested, normal mood/affect, nml station & gait, sensation nml, No motor deficits Skin Exam: normal color, warm, dry, No rash, No petechiae, No jaundice, No cyanosis SpO2 Interpretation: normal O2 Delivery: Room Air - Course Nursing assessment & vital signs reviewed: Yes - Radiology Ultrasound Exam OB Ultrasound: Other (Transvaginal Ultrasound: no signs of fetus in the uterus; some free fluid in the pelvis) Ordered Tests: Active Orders 24 hr Category Date Time Status IV Insertion STAT Care 03/26/19 17:23 Active Miscellaneous Nursing Order ROUTINE Care 03/26/19 18:09 Active OB <14 WKS 1ST GESTATION [US] Stat Exams 03/26/19 17:24 Taken AMYLASE Stat Lab 03/26/19 17:51 Completed CBC W DIFF Stat Lab 03/26/19 17:51 Completed CMP Stat Lab 03/26/19 17:51 Completed HCG, Quantitative (Inhouse) Stat Lab 03/26/19 17:51 Completed LIPASE Stat Lab 03/26/19 17:51 Completed Lactic Acid Stat Lab 03/26/19 17:45 Completed PROTIME WITH INR Stat Lab 03/26/19 17:51 Completed UA W/RFX UR CULTURE Stat Lab 03/26/19 19:00 Completed Medication Summary Discontinued Medications Generic Name Dose Route Start Last Admin Trade Name Freq PRN Reason Stop Dose Admin Hydromorphone HCl 1 mg 03/26/19 19:15 03/26/19 19:22 Hydromorphone 1 Mg/Ml Ampule IM 03/26/19 19:16 1 mg STAT ONE Administration Hydromorphone HCl Confirm 03/26/19 19:19 Hydromorphone 1 Mg/Ml Ampule Administered 03/26/19 19:20 Dose 1 mg .ROUTE .STK-MED ONE Sodium Chloride 1,000 mls @ 999 mls/hr 03/26/19 17:23 03/26/19 20:09 Sodium Chloride 0.9% 1000 Ml IV 03/26/19 18:23 Infused .Q1H1M STA Infusion Sodium Chloride Confirm 03/26/19 17:44 Sodium Chloride 0.9% 1000 Ml Administered 03/26/19 17:45 Dose 1,000 mls @ ud .ROUTE .STK-MED ONE Ondansetron HCl 4 mg 03/26/19 20:34 03/26/19 20:40 Zofran Odt 4 Mg PO 03/26/19 20:35 4 mg STAT ONE Administration Ondansetron HCl Confirm 03/26/19 20:39 Zofran Odt 4 Mg Administered 03/26/19 20:40 Dose 4 mg .ROUTE .STK-MED ONE Lab/Rad Data: Laboratory Result Diagrams 03/26/19 17:51 03/26/19 17:51 Laboratory Results 03/26/19 03/26/19 03/26/19 Range/Units 19:00 17:51 17:51 WBC (4.0-10.5) K/mm3 RBC (4.1-5.4) M/mm3 Hgb (12.0-16.0) gm/dl Hct (35-47) % MCV (78-100) fl MCH (26-32) pg MCHC (32-36) g/dl RDW (11.5-14.0) % Plt Count (150-450) K/mm3 MPV (6-9.5) fl Gran % (36.0-66.0) % Eos # (Auto) (0-0.5) Absolute Lymphs (auto) (1.0-4.6) Absolute Monos (auto) (0.0-1.3) Lymphocytes % (24.0-44.0) % Monocytes % (0.0-12.0) % Eosinophils % (0.00-5.0) % Basophils % (0.0-0.4) % Absolute Granulocytes (1.4-6.9) Basophils # (0-0.4) PT 11.4 (9.95-12.35) SECONDS INR 1.01 (0.8-3.0) Sodium (137-145) mmol/L Potassium (3.5-5.1) mmol/L Chloride (98-107) mmol/L Carbon Dioxide (22-30) mmol/L Anion Gap (5-15) MEQ/L BUN (7-17) mg/dL Creatinine (0.52-1.04) mg/dL Estimated GFR ML/MIN Glucose (74-106) mg/dL Lactic Acid (0.4-2.0) Calcium (8.4-10.2) mg/dL Total Bilirubin (0.2-1.3) mg/dL AST (14-36) U/L ALT (0-35) U/L Alkaline Phosphatase (38-126) U/L Serum Total Protein (6.3-8.2) g/dL Albumin (3.5-5.0) g/dL Amylase (30-110) U/L Lipase (23-300) U/L Beta HCG, Quant 90610 mIU/ml Urine Color YELLOW (YELLOW) Urine Appearance SLIGHTLY CLOUDY (CLEAR) Urine pH 7.0 (5-6) Ur Specific [place] 1.016 (1.005-1.025) Urine Protein NEGATIVE (Negative) Urine Ketones NEGATIVE (NEGATIVE) Urine Blood LARGE (0-5) Demarco/ul Urine Nitrite NEGATIVE (NEGATIVE) Urine Bilirubin NEGATIVE (NEGATIVE) Urine Urobilinogen 2 (0-1) mg/dL Ur Leukocyte Esterase NEGATIVE (NEGATIVE) Urine WBC (Auto) 6-10 (0-5) /HPF Urine RBC (Auto) >101 (0-2) /HPF Urine Bacteria (Auto) RARE (NEGATIVE) /HPF Urine Mucus (Auto) SLIGHT (NEGATIVE) /HPF Urine Culture Reflexed NO (NO) Urine Glucose NEGATIVE (NEGATIVE) mg/dL 03/26/19 03/26/19 03/26/19 Range/Units 17:51 17:51 17:45 WBC 6.3 (4.0-10.5) K/mm3 RBC 3.86 L (4.1-5.4) M/mm3 Hgb 11.5 L (12.0-16.0) gm/dl Hct 35.0 (35-47) % MCV 90.7 (78-100) fl MCH 29.7 (26-32) pg MCHC 32.9 (32-36) g/dl RDW 15.3 H (11.5-14.0) % Plt Count 263 (150-450) K/mm3 MPV 10.0 H (6-9.5) fl Gran % 69.4 H (36.0-66.0) % Eos # (Auto) 0.09 (0-0.5) Absolute Lymphs (auto) 1.30 (1.0-4.6) Absolute Monos (auto) 0.54 (0.0-1.3) Lymphocytes % 20.5 L (24.0-44.0) % Monocytes % 8.5 (0.0-12.0) % Eosinophils % 1.4 (0.00-5.0) % Basophils % 0.2 (0.0-0.4) % Absolute Granulocytes 4.39 (1.4-6.9) Basophils # 0.01 (0-0.4) PT (9.95-12.35) SECONDS INR (0.8-3.0) Sodium 141 (137-145) mmol/L Potassium 4.3 (3.5-5.1) mmol/L Chloride 108 H (98-107) mmol/L Carbon Dioxide 26 (22-30) mmol/L Anion Gap 11.8 (5-15) MEQ/L BUN 5 L (7-17) mg/dL Creatinine 0.39 L (0.52-1.04) mg/dL Estimated GFR > 60.0 ML/MIN Glucose 90 (74-106) mg/dL Lactic Acid 1.4 (0.4-2.0) Calcium 9.0 (8.4-10.2) mg/dL Total Bilirubin 0.20 (0.2-1.3) mg/dL AST 29 (14-36) U/L ALT 35 (0-35) U/L Alkaline Phosphatase 46 (38-126) U/L Serum Total Protein 6.5 (6.3-8.2) g/dL Albumin 3.7 (3.5-5.0) g/dL Amylase 65 (30-110) U/L Lipase 55 (23-300) U/L Beta HCG, Quant mIU/ml Urine Color (YELLOW) Urine Appearance (CLEAR) Urine pH (5-6) Ur Specific [place] (1.005-1.025) Urine Protein (Negative) Urine Ketones (NEGATIVE) Urine Blood (0-5) Demarco/ul Urine Nitrite (NEGATIVE) Urine Bilirubin (NEGATIVE) Urine Urobilinogen (0-1) mg/dL Ur Leukocyte Esterase (NEGATIVE) Urine WBC (Auto) (0-5) /HPF Urine RBC (Auto) (0-2) /HPF Urine Bacteria (Auto) (NEGATIVE) /HPF Urine Mucus (Auto) (NEGATIVE) /HPF Urine Culture Reflexed (NO) Urine Glucose (NEGATIVE) mg/dL Blood Type: Peformed at [facility] on 03/25/2019: Confirmed A positive Ultrasound OB at [facility] performed on 03/25/2019: Confirmed Single Live Intrauterine - Progress Air Movement: good Progress Note: 03/26/19 18:00 Patient passed a large clot form the vagina during the ultrasound examination. Patient's clot specimen was sent to pathology for product of conception confirmation 03/26/19 19:15 Patient is having worsening lower abdominal cramping and pain. Patient will be given Dilaudid 1mg IM times one. 03/26/19 20:45 Patient's pain has resolved. Dose of Zofran given. Reviewed labs and ultrasound results and Dr Granado's recommendation. Patient is not complaining of bleeding at this time. Blood Culture(s) Obtained: No Antibiotics given: No Discussed with Dr.: Other (@19:50, Dr Meza, INFECTIOUS DISEASES PHYSICIAN was consulted; @ 20:30, Dr Granado, INFECTIOUS DISEASES PHYSICIAN covering for Dr Meza, called back and I reviewed the patient' s presentation, results of labs and ultrasound. Dr Granado states patient may be discharged home and to follow-up in the office tomorrow to set-up a schedule to follow serum b-HCGs in the future until they go to zero.) Will see patient in: office Counseled pt/family regarding: lab results, diagnosis, need for follow-up, rad results - Departure Departure Disposition: Home Clinical Impression: Spontaneous Condition: Good Critical Care Time: No Referrals: ARMAAN TREVINO NP [Primary Care Provider] - Follow Up with PCP/3 days JOSH MEZA MD [NON-STAFF PHY W/O PRIVILEGES] - 03/27/19 (Call the office for follow-up schedule) Instructions: Miscarriage Additional Instructions: Return immediately to the emergency department if any worse pain, bleeding, new dizziness, new chest pain, new shortness of breath or any concerning signs or symptoms that were not present at today's emergency department visit for immediate re-evaluation in the emergency department. Forms: Work/School Release Form Prescriptions: Hydrocodone/APAP 5-325 Tab^^^ [Trout 5-325 Tablet^^^] 1 tab PO Q6HPRN PRN #10 tablet MDD 6 PRN Reason: Pain Meclizine HCl 25 mg [Antivert 25 mg] 25 mg PO Q6H PRN PRN #14 tablet PRN Reason: Nausea
[2019-03-26] MEDS ORDERED: Sodium Chloride 0.9% 1000 ML 1,000 ML IV STA (17:23)
[2019-03-26] MEDS ORDERED: Sodium Chloride 0.9% 1000 ML 1,000 ML ONE (17:44)
[2019-03-26 17:54] LABS: Absolute Neutrophil Ct (ANC) 4.39 (1.4-6.9); BASOPHIL % 0.2 % (0.0-0.4); Basophil (Absolute #) 0.01 (0-0.4); Eosinophil % 1.4 % (0.00-5.0); Eosinophil (Absolute #) 0.09 (0-0.5); Hemoglobin 11.5 gm/dl (12.0-16.0); Lymphocytes % 20.5 % (24.0-44.0); Mean Cell Volume 90.7 fl (78-100); Mean Corpuscular Hgb Concent. 32.9 g/dl (32-36); Monocyte (Absolute #) 0.54 (0.0-1.3); Monocytes % 8.5 % (0.0-12.0); Neutrophil % 69.4 % (36.0-66.0); Platelet Count 263 K/mm3 (150-450); Red Blood Count 3.86 M/mm3 (4.1-5.4); Red Cell Distribution Width 15.3 % (11.5-14.0); White Blood Count 6.3 K/mm3 (4.0-10.5)
[2019-03-26 17:56] LABS: Mean Corpuscular Hemoglobin 29.7 pg (26-32)
[2019-03-26 18:05] LABS: INR 1.01 (0.8-3.0); PROTIME 11.4 SECONDS (9.95-12.35)
[2019-03-26 18:10] LABS: ALBUMIN 3.7 g/dL (3.5-5.0); ALKALINE PHOSPHATASE 46 U/L (38-126); AMYLASE 65 U/L (30-110); ANION GAP 11.8 MEQ/L (5-15); BLOOD UREA NITROGEN 5 mg/dL (7-17); CHLORIDE 108 mmol/L (98-107); Carbon Dioxide 26 mmol/L (22-30); Creatinine 1 0.39 mg/dL (0.52-1.04); Glucose 90 mg/dL (74-106); LIPASE 55 U/L (23-300); Potassium 4.3 mmol/L (3.5-5.1); SGOT/AST 29 U/L (14-36); SGPT/ALT 35 U/L (0-35); SODIUM 141 mmol/L (137-145); Total Protein 6.5 g/dL (6.3-8.2)
[2019-03-26] MEDS ORDERED: Hydromorphone 1 mg/ml Ampule IM ONE (19:15)
[2019-03-26] MEDS ORDERED: Hydromorphone 1 mg/ml Ampule ONE (19:19)
[2019-03-26 19:33] LABS: Appearance SLIGHTLY CLOUDY (CLEAR); Bacteria RARE /HPF (NEGATIVE); Bilirubin NEGATIVE (NEGATIVE); Blood LARGE Ery/ul (0-5); Glucose NEGATIVE (NEGATIVE); Ketones NEGATIVE (NEGATIVE); Leukocyte Esterase NEGATIVE (NEGATIVE); Mucus SLIGHT /HPF (NEGATIVE); Nitrite NEGATIVE (NEGATIVE); Protein,Urine Dip NEGATIVE (Negative); Specific Gravity 1.016 (1.005-1.025); Urobilinogen 2 mg/dL (0-1)
[2019-03-26 19:34] LABS: RBC >101 /HPF (0-2)
[2019-03-26 20:16] VITALS: BP 122/69
[2019-03-26 20:17] VITALS: PULSE 70; O2SAT 98
[2019-03-26] MEDS ORDERED: ZOFRAN ODT 4 MG PO ONE (20:34)
[2019-03-26] MEDS ORDERED: ZOFRAN ODT 4 MG ONE (20:39)
--- NOTE | 2019-03-27 08:44 | XRAY ---
Indication: Bleeding and cramping. Same day OB ultrasound from [facility] reports intrauterine measuring 6 weeks 5 days. Two-dimensional transvaginal OB ultrasound performed. Comparison: None at our institution for this . Uterus is anteverted measuring 6.8 x 5.0 x 2.8 cm. No intrauterine gestational sac, pole, heart tones, or endometrial cavity mass/fluid. Right ovary measures 2.0 x 2.3 x 1.6 cm and the left measures 2.2 x 1.9 x 1.7 cm with normal color perfusion bilaterally. No suspicious adnexal mass. Tiny cul-de-sac fluid. Impression: Negative sonogram. Specifically no evidence for intrauterine or ectopic . Comment: Global Compensation Director does report large clot/tissue was expelled during the exam. Preliminary report was given.
== END 2019-03-26 20:59 | disposition home or self-care (01) ==
LOC: ED 16:54
DX: O03.9 Complete or unspecified spontaneous abortion without complication (principal)
CPT/HCPCS: 36000; 36415; 76801; 80053; 81001; 82150; 83605; 83690; 84702; 85025; 85610; 96372; 99284; J1170; Q0162

== ENCOUNTER 2020-03-09 20:00 | Emergency (ER) | payer BC ==
[2020-03-09] MEDS ORDERED: Sodium Chloride 0.9% 1000 ML 1,000 ML IV STA (20:29)
[2020-03-09] MEDS ORDERED: Pepcid 20 MG VIAL IV ONE (20:32)
[2020-03-09] MEDS ORDERED: MAALOX ES 30 ML UNIT DOSE PO ONE (20:32)
--- NOTE | 2020-03-09 20:37 | ERPHSYRPT ---
- History of Present Illness Time Seen by Provider: 03/09/20 20:33 Historian: patient, family Exam Limitations: no limitations Patient Subjective Stated Complaint: Abd pain Triage Nursing Assessment: pt c/o abd pain to mid abd region, with radiation out to the sides, pt denies any flank pain. Abd area is obese, soft and tender on palpation. Pt is 17 weeks . Physician History: pt is 17 weeks preg and had onset abd pain this afternoon a few hours ago without relief. has had GB out previously. pain is epigastric. non radiating, no reported bleeding or discharge. nontender abd. Timing/Duration: today Activities at Onset: none Quality: sharpness, stabbing Abdominal Pain Onset Location: epigastric Pain Radiation: no radiation Severity of Pain-Max: moderate Severity of Pain-Current: moderate Modifying Factors: Improves With: nothing Associated Symptoms: denies symptoms Previous symptoms: no prior history Allergies/Adverse Reactions: albuterol Allergy (Mild, Verified 03/09/20 20:27) CHILDHOOD cefixime [From Suprax] Allergy (Mild, Verified 03/09/20 20:27) CHILDHOOD cefuroxime axetil [From Ceftin] Allergy (Mild, Verified 03/09/20 20:27) CHILDHOOD Home Medications: Doxylamine Succinate/Vit B6 [Bonjesta ER 20-20 mg Tablet] 1 tab PO DAILY 09/13/18 [History] Vits W-Ca,Fe,FA(<1Mg) [] 1 each PO DAILY 09/13/18 [History] Hx Tetanus, Diphtheria Vaccination/Date Given: Yes Hx Influenza Vaccination/Date Given: Yes Hx Pneumococcal Vaccination/Date Given: No Immunizations Up to Date: Yes Travel Risk - International Travel Have you traveled outside of the country in past 3 weeks: No - Coronavirus Screening Are you exhibiting any of the following symptoms?: No Close contact with a COVID-19 positive Pt in past 14-21 Days: No - Review of Systems Constitutional: No Fever, No Chills Eyes: No Symptoms Ears, Nose, & Throat: No Symptoms Respiratory: No Cough, No Dyspnea Cardiac: No Chest Pain, No Edema, No Syncope Abdominal/Gastrointestinal: Abdominal Pain, No Nausea, No Vomiting, No Diarrhea Genitourinary Symptoms: No Dysuria Musculoskeletal: No Back Pain, No Neck Pain Skin: No Rash Neurological: No Dizziness, No Focal Weakness, No Sensory Changes Psychological: No Symptoms Endocrine: No Symptoms All Other Systems: Reviewed and Negative - Past Medical History Pertinent Past Medical History: Yes Neurological History: No Pertinent History ENT History: No Pertinent History Cardiac History: No Pertinent History Respiratory History: No Pertinent History Endocrine Medical History: No Pertinent History Musculoskeletal History: No Pertinent History GI Medical History: GERD, Gallbladder Disease History: No Pertinent History Psycho-Social History: Depression Female Reproductive Disorders: Other Other Medical History: had HI in august, few miscarriage - Past Surgical History Past Surgical History: Yes Neuro Surgical History: No Pertinent History Cardiac: No Pertinent History Respiratory: No Pertinent History Gastrointestinal: Cholecystectomy, Other Genitourinary: No Pertinent History Musculoskeletal: No Pertinent History Female Surgical History: No Pertinent History Other Surgical History: GASTRIC BYPASS, TONSILS, transabdominal cerclage - Social History Smoking Status: Never smoker Exposure to second hand smoke: No Alcohol Use: None Drug Use: none Patient Lives Alone: No - Female History Hx Now: Yes Expected Date of Delivery: 08/16/20 - Nursing Vital Signs Nursing Vital Signs: Initial Vital Signs Temperature 98.1 F 03/09/20 20:12 Pulse Rate 90 03/09/20 20:12 Respiratory Rate 22 03/09/20 20:12 Blood Pressure 136/60 03/09/20 20:12 O2 Sat by Pulse Oximetry 100 03/09/20 20:12 Pain Scale Pain Intensity 5 - Physical Exam General Appearance: no apparent distress, alert Eye Exam: PERRL/EOMI, eyes nml inspection Ears, Nose, Throat Exam: normal ENT inspection, pharynx normal, moist mucous membranes Neck Exam: normal inspection, non-tender, supple, full range of motion Respiratory Exam: normal breath sounds, lungs clear, No respiratory distress Cardiovascular Exam: regular rate/rhythm, normal heart sounds Gastrointestinal/Abdomen Exam: soft, No tenderness, No mass Pelvic Exam: deferred Rectal Exam: deferred Back Exam: normal inspection, normal range of motion, No CVA tenderness, No vertebral tenderness Extremity Exam: normal inspection, normal range of motion, pelvis stable Neurologic Exam: alert, oriented x 3, cooperative, normal mood/affect, nml cerebellar function, sensation nml, No motor deficits Skin Exam: normal color, warm, dry SpO2: 100 - Course Nursing assessment & vital signs reviewed: Yes - Radiology Ultrasound Exam OB Ultrasound: tele radiology report, Other ( demise of twin ; other OK at 17 weeks FHT 163 and moving) Ordered Tests: Active Orders 24 hr Category Date Time Status IV Insertion STAT Care 03/09/20 20:29 Active OB >14 WKS 1st GESTATION [US] Stat Exams 03/09/20 20:31 Taken AMYLASE Stat Lab 03/09/20 21:00 Completed CBC W DIFF Stat Lab 03/09/20 21:00 Completed CMP Stat Lab 03/09/20 21:00 Completed HCG, Quantitative (Inhouse) Stat Lab 03/09/20 21:00 Completed LIPASE Stat Lab 03/09/20 21:00 Completed Lactic Acid Stat Lab 03/09/20 21:00 Completed UA W/RFX UR CULTURE Stat Lab 03/09/20 21:15 Completed Medication Summary Discontinued Medications Generic Name Dose Route Start Last Admin Trade Name Freq PRN Reason Stop Dose Admin Acetaminophen 500 mg 03/09/20 23:23 03/09/20 23:34 Tylenol Extra Strength 500 Mg PO 03/09/20 23:24 500 mg STAT STA Administration Acetaminophen Confirm 03/09/20 23:32 Tylenol Extra Strength 500 Mg Administered 03/09/20 23:33 Dose 500 mg .ROUTE .STK-MED ONE Al Hydrox/Mg Hydrox/Simethicone 20 ml 03/09/20 20:32 03/09/20 23:34 Maalox Es 30 Ml Unit Dose PO 03/09/20 20:33 Not Given STAT ONE Famotidine 20 mg 03/09/20 20:32 03/09/20 23:32 Pepcid 20 Mg Vial IV 03/09/20 20:33 Not Given STAT ONE Sodium Chloride 1,000 mls @ 999 mls/hr 03/09/20 20:29 03/09/20 23:32 Sodium Chloride 0.9% 1000 Ml IV 03/09/20 21:29 Not Given .Q1H1M STA Lab/Rad Data: Laboratory Result Diagrams 03/09/20 21:00 03/09/20 21:00 Laboratory Results 03/09/20 03/09/20 03/09/20 Range/Units 21:15 21:00 21:00 WBC (4.0-10.5) K/mm3 RBC (4.1-5.4) M/mm3 Hgb (12.0-16.0) gm/dl Hct (35-47) % MCV (78-100) fl MCH (26-32) pg MCHC (32-36) g/dl RDW (11.5-14.0) % Plt Count (150-450) K/mm3 MPV (7.5-11.0) fl Gran % (36.0-66.0) % Eos # (Auto) (0-0.5) Absolute Lymphs (auto) (1.0-4.6) Absolute Monos (auto) (0.0-1.3) Lymphocytes % (24.0-44.0) % Monocytes % (0.0-12.0) % Eosinophils % (0.00-5.0) % Basophils % (0.0-0.4) % Absolute Granulocytes (1.4-6.9) Basophils # (0-0.4) Sodium 134 L (137-145) mmol/L Potassium 4.0 (3.5-5.1) mmol/L Chloride 106 (98-107) mmol/L Carbon Dioxide 22 (22-30) mmol/L Anion Gap 10.1 (5-15) MEQ/L BUN 6 L (7-17) mg/dL Creatinine 0.43 L (0.52-1.04) mg/dL Estimated GFR > 60.0 ML/MIN Glucose 91 (74-106) mg/dL Lactic Acid 1.2 (0.4-2.0) Calcium 9.3 (8.4-10.2) mg/dL Total Bilirubin 0.20 (0.2-1.3) mg/dL AST 26 (14-36) U/L ALT 24 (0-35) U/L Alkaline Phosphatase 53 (38-126) U/L Serum Total Protein 7.1 (6.3-8.2) g/dL Albumin 4.0 (3.5-5.0) g/dL Amylase 72 (30-110) U/L Lipase 41 (23-300) U/L Beta HCG, Quant 88171 mIU/ml Urine Color YELLOW (YELLOW) Urine Appearance SLIGHTLY CLOUDY (CLEAR) Urine pH 6.0 (5-6) Ur Specific Lyons 1.014 (1.005-1.025) Urine Protein 30 (Negative) Urine Ketones NEGATIVE (NEGATIVE) Urine Blood NEGATIVE (0-5) Demarco/ul Urine Nitrite NEGATIVE (NEGATIVE) Urine Bilirubin NEGATIVE (NEGATIVE) Urine Urobilinogen NEGATIVE (0-1) mg/dL Ur Leukocyte Esterase NEGATIVE (NEGATIVE) Urine WBC (Auto) NONE (0-5) /HPF Urine RBC (Auto) NONE (0-2) /HPF U Epithel Cells (Auto) NONE (FEW) /HPF Urine Bacteria (Auto) NONE (NEGATIVE) /HPF Urine Mucus (Auto) SLIGHT (NEGATIVE) /HPF Urine Culture Reflexed NO (NO) Urine Glucose NEGATIVE (NEGATIVE) mg/dL 03/09/20 Range/Units 21:00 WBC 8.6 (4.0-10.5) K/mm3 RBC 3.78 L (4.1-5.4) M/mm3 Hgb 10.6 L (12.0-16.0) gm/dl Hct 32.9 L (35-47) % MCV 87.0 (78-100) fl MCH 28.0 (26-32) pg MCHC 32.2 (32-36) g/dl RDW 16.8 H (11.5-14.0) % Plt Count 281 (150-450) K/mm3 MPV 11.0 (7.5-11.0) fl Gran % 76.0 H (36.0-66.0) % Eos # (Auto) 0.08 (0-0.5) Absolute Lymphs (auto) 1.49 (1.0-4.6) Absolute Monos (auto) 0.50 (0.0-1.3) Lymphocytes % 17.2 L (24.0-44.0) % Monocytes % 5.8 (0.0-12.0) % Eosinophils % 0.9 (0.00-5.0) % Basophils % 0.1 (0.0-0.4) % Absolute Granulocytes 6.56 (1.4-6.9) Basophils # 0.01 (0-0.4) Sodium (137-145) mmol/L Potassium (3.5-5.1) mmol/L Chloride (98-107) mmol/L Carbon Dioxide (22-30) mmol/L Anion Gap (5-15) MEQ/L BUN (7-17) mg/dL Creatinine (0.52-1.04) mg/dL Estimated GFR ML/MIN Glucose (74-106) mg/dL Lactic Acid (0.4-2.0) Calcium (8.4-10.2) mg/dL Total Bilirubin (0.2-1.3) mg/dL AST (14-36) U/L ALT (0-35) U/L Alkaline Phosphatase (38-126) U/L Serum Total Protein (6.3-8.2) g/dL Albumin (3.5-5.0) g/dL Amylase (30-110) U/L Lipase (23-300) U/L Beta HCG, Quant mIU/ml Urine Color (YELLOW) Urine Appearance (CLEAR) Urine pH (5-6) Ur Specific Lyons (1.005-1.025) Urine Protein (Negative) Urine Ketones (NEGATIVE) Urine Blood (0-5) Demarco/ul Urine Nitrite (NEGATIVE) Urine Bilirubin (NEGATIVE) Urine Urobilinogen (0-1) mg/dL Ur Leukocyte Esterase (NEGATIVE) Urine WBC (Auto) (0-5) /HPF Urine RBC (Auto) (0-2) /HPF U Epithel Cells (Auto) (FEW) /HPF Urine Bacteria (Auto) (NEGATIVE) /HPF Urine Mucus (Auto) (NEGATIVE) /HPF Urine Culture Reflexed (NO) Urine Glucose (NEGATIVE) mg/dL - Progress Progress: improved, re-examined Progress Note: 03/09/20 22:[address] Cee at [place] her OB 03/10/20 00:37 Dr. Contreras was covering at - I reviewed the findings with him and he feels there should be no likely problem with the remaining at this time and pt can go home and check in with Dr. Cee in am . the pain has improved with tylenol and pepcid and she is comfortable with DC and outpt f/u dr. cee this am and to return meantime if furhter episodes or concerns. SHe understands that we have not determined a cause and that there could be undetected pathology evolving and chooses outpt f/u rather thatn further leiva at this time in ER or adm and has the capacity to make this choice. Discussed with : Other (dr. contreras at ) Counseled pt/family regarding: lab results, diagnosis, need for follow-up, rad results - Departure Departure Disposition: Home Clinical Impression: Twin gestation in second trimester, demise of one twin, Abdominal pain complicating Condition: Good Critical Care Time: No Referrals: ARMAAN TREVINO NP [Primary Care Provider] - Instructions: Acid Reflux and GERD in Adults (DC) Additional Instructions: call Dr. Cee for followup this morning and further advice on how to manage potential acid reflux and dispepsia in pregancy and whether further w/u is needed. this followup later this morning is important since although the OB US demonstrates a good result for the remaining , and acid reflux / stomach acid of can cause these types of symptoms and may be the explanation, we still have not yet determined for certain the precise cause for the pain. Also return meantime if you need to.
[2020-03-09 21:15] LABS: Absolute Neutrophil Ct (ANC) 6.56 (1.4-6.9); BASOPHIL % 0.1 % (0.0-0.4); Basophil (Absolute #) 0.01 (0-0.4); Eosinophil % 0.9 % (0.00-5.0); Eosinophil (Absolute #) 0.08 (0-0.5); Hematocrit 32.9 % (35-47); Hemoglobin 10.6 gm/dl (12.0-16.0); Lymphocyte (Absolute #) 1.49 (1.0-4.6); Lymphocytes % 17.2 % (24.0-44.0); Mean Corpuscular Hgb Concent. 32.2 g/dl (32-36); Monocytes % 5.8 % (0.0-12.0); Platelet Count 281 K/mm3 (150-450); Red Blood Count 3.78 M/mm3 (4.1-5.4); Red Cell Distribution Width 16.8 % (11.5-14.0); White Blood Count 8.6 K/mm3 (4.0-10.5)
[2020-03-09 21:24] LABS: Appearance SLIGHTLY CLOUDY (CLEAR); Bilirubin NEGATIVE (NEGATIVE); Blood NEGATIVE Ery/ul (0-5); Glucose NEGATIVE (NEGATIVE); Ketones NEGATIVE (NEGATIVE); Leukocyte Esterase NEGATIVE (NEGATIVE); Mucus SLIGHT /HPF (NEGATIVE); Nitrite NEGATIVE (NEGATIVE); Protein,Urine Dip 30 (Negative); Specific Gravity 1.014 (1.005-1.025); Urobilinogen NEGATIVE mg/dL (0-1)
[2020-03-09 21:43] LABS: ALKALINE PHOSPHATASE 53 U/L (38-126); AMYLASE 72 U/L (30-110); ANION GAP 10.1 MEQ/L (5-15); BLOOD UREA NITROGEN 6 mg/dL (7-17); CHLORIDE 106 mmol/L (98-107); Calcium 9.3 mg/dL (8.4-10.2); Carbon Dioxide 22 mmol/L (22-30); Creatinine 1 0.43 mg/dL (0.52-1.04); EST GLOMERULAR FILTRATION RATE > 60.0 ML/MIN; Glucose 91 mg/dL (74-106); HCG, Quantitative (Inhouse) 13317 mIU/ml; LIPASE 41 U/L (23-300); SGOT/AST 26 U/L (14-36); SGPT/ALT 24 U/L (0-35); SODIUM 134 mmol/L (137-145); Total Protein 7.1 g/dL (6.3-8.2)
[2020-03-09] MEDS ORDERED: TYLENOL EXTRA STRENGTH 500 MG PO STA (23:23)
[2020-03-09] MEDS ORDERED: TYLENOL EXTRA STRENGTH 500 MG ONE (23:32)
[2020-03-10] MEDS ORDERED: Pepcid 20 MG PO ONE (00:33)
[2020-03-10] MEDS ORDERED: Pepcid 20 MG ONE (00:39)
[2020-03-10 01:07] VITALS: BP 108/67; PULSE 80; O2SAT 98
--- NOTE | 2020-03-10 09:20 | XRAY ---
Indication: Pain. Known twin with one twin demise at 9 weeks. Two-dimensional transabdominal OB ultrasound performed. Comparison: None for this . Intrauterine twin . Twin A gestational sac and pole appears markedly small without heart tones consistent with known demise. Twin B demonstrates heart rate 163 BPM. Anterior placenta without abruption/previa. BPD measures 3.79 cm corresponding to 17 weeks 4 days. HC measures 14.03 cm corresponding to 17 weeks 3 days. AC measures 11.58 cm corresponding to 17 weeks 2 days. FL measures 2.25 cm corresponding to 16 weeks 5 days. Impression: 1. Twin with single viable intrauterine with mean gestational age 17 weeks 2 days. Expected date of confinement is August 15, 2020. 2. Remnant demise of second twin. Comment: Preliminary interpretation was made by [facility]. No critical discrepancy.
== END 2020-03-10 01:09 | disposition home or self-care (01) ==
LOC: ED 20:00
DX: O30.002 Twin pregnancy, unspecified number of placenta and unspecified number of amniotic sacs, second trimester (principal); O36.4XX1 Maternal care for intrauterine death, fetus 1; Z3A.17 17 weeks gestation of pregnancy; R10.9 Unspecified abdominal pain
CPT/HCPCS: 36415; 76805; 80053; 81001; 82150; 83605; 83690; 84702; 85025; 99284; A9270-GY

== ENCOUNTER 2020-06-25 19:25 | Observation (INO) | payer BC ==
[2020-06-25 20:16] LABS: Appearance CLEAR (CLEAR); Bacteria RARE /HPF (NEGATIVE); Bilirubin NEGATIVE (NEGATIVE); Blood NEGATIVE Ery/ul (0-5); Glucose NEGATIVE (NEGATIVE); Ketones NEGATIVE (NEGATIVE); Leukocyte Esterase TRACE (NEGATIVE); Nitrite NEGATIVE (NEGATIVE); Protein,Urine Dip NEGATIVE (Negative); Specific Gravity 1.002 (1.005-1.025); Urobilinogen NEGATIVE mg/dL (0-1)
[2020-06-25 20:26] LABS: Amphetamine,Urine NEGATIVE (NEGATIVE); Barbiturate,Urine NEGATIVE (NEGATIVE); Benzodiazepine,Urine NEGATIVE (NEGATIVE); Cocaine,Urine NEGATIVE (NEGATIVE); Methadone,Urine NEGATIVE (NEGATIVE); Opiate,Urine NEGATIVE (NEGATIVE); PCP,Urine NEGATIVE (NEGATIVE); THC,Urine NEGATIVE (NEGATIVE)
[2020-06-25 20:56] VITALS: BP 131/74; PULSE 80; O2SAT 98
== END 2020-06-25 20:25 | disposition home or self-care (01) ==
LOC: MED SURG 19:25
PROVIDERS: ADMIT Family Medicine; ATTEND Family Medicine
DX: Z34.83 Encounter for supervision of other normal pregnancy, third trimester (principal); Z3A.33 33 weeks gestation of pregnancy; W19.XXXA Unspecified fall, initial encounter
CPT/HCPCS: 80307; 81001; G0378

== ENCOUNTER 2023-04-28 16:46 | Emergency (ER) | payer OTHER ==
[2023-04-28 17:05] VITALS: BP 120/77; PULSE 88; RESP 18; TEMP 97.2; O2SAT 99
[2023-04-28] MEDS ORDERED: TYLENOL 325 MG PO ONE (17:06)
--- NOTE | 2023-04-28 17:09 | ERPHSYRPT ---
- History of Present Illness Time Seen by Provider: 04/28/23 17:10 Source: patient Exam Limitations: no limitations Patient Subjective Stated Complaint: lower back pain Triage Nursing Assessment: . Physician History: 19-year-old female presents to our ED for evaluation of low back pain. Pain started approximately 4 days ago after riding a some type of a carnival ride that dropped quickly. Pain described as an ache that is localized. No radiation. Patient rates her pain 8 out of 10 at rest. 10 out of 10 with movement. No blunt trauma. No fever. No change in bowel bladder function. No saddle anesthesia. No recent back procedures. Pain is sharp. Pain worse with bending forward and rotating. Patient's job requires her to lift. Patient denies urinary symptomology. No hematuria or dysuria. No frequency or urgency. Patient otherwise feels well. She voices no other complaints or concerns at this time. Portions of this note were created with voice recognition technology. There may be grammatical, spelling, punctuation or sound alike errors Timing/Duration: day(s) Method of Injury: other Quality: sharp Back Pain Location: lumbar spine Severity of Pain-Max: moderate Severity of Pain-Current: moderate Modifying Factors: Improves With: movement Associated Symptoms: denies symptoms Previous symptoms: no prior history Allergies/Adverse Reactions: albuterol Allergy (Mild, Verified 04/28/23 16:56) CHILDHOOD cefixime [From Suprax] Allergy (Mild, Verified 04/28/23 16:56) CHILDHOOD cefuroxime axetil [From Ceftin] Allergy (Mild, Verified 04/28/23 16:56) CHILDHOOD triamcinolone [From Kenalog] Allergy (Mild, Verified 04/28/23 16:57) Hives Home Medications: Ferrous Sulfate [Iron] 325 mg PO DAILY 12/17/20 [History] Hx Tetanus, Diphtheria Vaccination/Date Given: Yes Hx Influenza Vaccination/Date Given: Yes Hx Pneumococcal Vaccination/Date Given: No Travel Risk - International Travel Have you traveled outside of the country in past 3 weeks: No - Coronavirus Screening Are you exhibiting any of the following symptoms?: No Close contact with a COVID-19 positive Pt in past 14-21 Days: No - Vaccine Status Have you recieved a Covid-19 vaccination: No - Review of Systems Constitutional: No Symptoms, No Fever, No Chills Eyes: No Symptoms Ears, Nose, & Throat: No Symptoms Respiratory: No Symptoms, No Cough, No Dyspnea Cardiac: No Symptoms, No Chest Pain, No Edema, No Syncope Abdominal/Gastrointestinal: No Symptoms, No Abdominal Pain, No Nausea, No Vomiting, No Diarrhea Genitourinary Symptoms: No Symptoms, No Dysuria Musculoskeletal: No Symptoms, No Back Pain, No Neck Pain Skin: No Symptoms, No Rash Neurological: No Symptoms, No Dizziness, No Focal Weakness, No Sensory Changes Psychological: No Symptoms Endocrine: No Symptoms Hematologic/Lymphatic: No Symptoms Immunological/Allergic: No Symptoms All Other Systems: Reviewed and Negative - Past Medical History Pertinent Past Medical History: No Neurological History: No Pertinent History ENT History: No Pertinent History Cardiac History: No Pertinent History Respiratory History: No Pertinent History Endocrine Medical History: No Pertinent History Musculoskeletal History: No Pertinent History GI Medical History: Other History: No Pertinent History Psycho-Social History: Other Female Reproductive Disorders: No Pertinent History Other Medical History: gall bladder removed 2014 when had gastric bypass - Past Surgical History Past Surgical History: Yes Neuro Surgical History: No Pertinent History Cardiac: No Pertinent History Respiratory: No Pertinent History Gastrointestinal: Other Genitourinary: No Pertinent History Musculoskeletal: No Pertinent History Female Surgical History: Section Other Surgical History: t and a 2002 - Social History Smoking Status: Never smoker Exposure to second hand smoke: No Alcohol Use: None Drug Use: none Patient Lives Alone: No - Female History Hx Now: No - Nursing Vital Signs Nursing Vital Signs: Initial Vital Signs Temperature 97.2 F 04/28/23 16:59 Pulse Rate 88 04/28/23 16:59 Respiratory Rate 18 04/28/23 16:59 Blood Pressure 120/77 04/28/23 16:59 O2 Sat by Pulse Oximetry 99 04/28/23 16:59 Pain Scale Pain Intensity [Right Lower 8 Back] Pain Intensity 8 - Physical Exam General Appearance: no apparent distress, alert Eye Exam: PERRL/EOMI, eyes nml inspection Neck Exam: normal inspection, non-tender, supple, full range of motion, No meningismus, No midline tenderness Respiratory Exam: normal breath sounds, lungs clear, airway intact, No respiratory distress Cardiovascular Exam: regular rate/rhythm, normal heart sounds Gastrointestinal Exam: soft, normal bowel sounds, No tenderness, No mass Extremity Exam: normal inspection, normal range of motion, other (Tenderness to palpation at the right lower lumbar paraspinal muscle. Overlying soft tissue intact. Palpation at this location reproduces pain.), No calf tenderness, No pedal edema Neurologic Exam: alert, oriented x 3, cooperative, electrical logger II-XII nml as tested, normal mood/affect, nml station & gait, sensation nml, No motor deficits Skin Exam: normal color, warm, dry, No rash SpO2 Interpretation: normal SpO2: 99 O2 Delivery: Room Air - Course Nursing assessment & vital signs reviewed: Yes Ordered Tests: Medication Summary Discontinued Medications Generic Name Dose Route Start Last Admin Trade Name Joshua PRN Reason Stop Dose Admin Acetaminophen 975 mg 04/28/23 17:06 04/28/23 17:16 Acetaminophen 325 Mg Tablet PO 04/28/23 17:07 975 mg STAT ONE Administration Acetaminophen Confirm 04/28/23 17:16 Acetaminophen 325 Mg Tablet Administered 04/28/23 17:17 Dose 975 mg .ROUTE .STK-MED ONE - Progress Progress: improved Progress Note: 27-year-old female presents to our ED for evaluation of back pain. Physical exam reveals tenderness to palpation at the right lumbar paraspinal musculature. Palpation reproduces patient's pain. Patient has no urinary symptomology. No midline pain or tenderness. No indication for x-ray at this time. Patient has multiple allergies. She cannot have steroids or NSAIDs. Patient is driving therefore cannot have a muscle relaxer in our ED. Patient was given a oral dose of acetaminophen. A prescription for Flexeril was forwarded to patient's pharmacy. Patient agrees to follow-up with her primary care doctor within 48 hours for evaluation. She voices no other complaints or concerns at this time. Patient denies . Portions of this note were created with voice recognition technology. There may be grammatical, spelling, punctuation or sound alike errors Complexity of problems addressed is moderate acute complicated No critical care time Complexity of data reviewed and analyzed is none. Diagnosis made based on history and physical exam. Risk of complication and or risk of morbidity/mortality of patient management is moderate. A prescription for muscle relaxer was forwarded to patient's pharmacy. Patient declined the possibility of . Vital stable. Time spent to discharge patient is approximately 15 minutes. Plan of care established for shared decision making. No social determinants of health present impede follow-up. Portions of this note were created with voice recognition technology. There may be grammatical, spelling, punctuation or sound alike errors 04/28/23 17:31 04/28/23 17:35 Counseled pt/family regarding: diagnosis, need for follow-up - Departure Departure Disposition: Home Clinical Impression: Lumbosacral strain Condition: Stable Critical Care Time: No Referrals: DILLON ISAACS, [employer] [Primary Care Provider] - Follow up/PCP as directed Additional Instructions: Discharge/Care Plan WMDELGADO STARKEY was seen on 04/28/23 in the Emergency Room. The patient was counseled regarding Diagnosis,Lab results, Imaging studies, need for follow up and when to return to the Emergency Room. Prescriptions given: Discharge Note I have spoken with the patient and/or caregivers. I have explained the patient's condition, diagnosis and treatment plan based on the information available to me at this time. I have answered the patient's and/or caregiver's questions and addressed any concerns. The patient and/or caregivers have as good understanding of the patient's diagnosis, condition and treatment plan as can be expected at this point. The vital signs have been stable. The patient's condition is stable and appropriate for discharge from the emergency department. The patient will pursue further outpatient evaluation with the primary care physician or other designated or consulting physician as outlined in the d ischarge instructions. The patient and/or caregivers are agreeable to this plan of care and follow-up instructions have been explained in detail. The patient and/or caregivers have received these instruction. The patient/and or caregivers are aware that any significant change in condition or worsening of symptoms should prompt an immediate return to this or the closest emergency department or call 911. Prescriptions: Cyclobenzaprine HCl 10 mg [Flexeril 10 MG] 10 mg PO TID 4 Days #12 tablet
[2023-04-28] MEDS ORDERED: TYLENOL 325 MG ONE (17:16)
== END 2023-04-28 17:30 | disposition home or self-care (01) ==
LOC: ED 16:46
DX: S39.012A Strain of muscle, fascia and tendon of lower back, initial encounter (principal); X50.0XXA Overexertion from strenuous movement or load, initial encounter; Y92.831 Amusement park as the place of occurrence of the external cause; Z79.899 Other long term (current) drug therapy; Z28.310 Unvaccinated for COVID-19
CPT/HCPCS: 99281; A9270-GY